=== PATIENT | female | born 1995 | race Caucasian/White ===

== ENCOUNTER 2018-12-26 15:27 | Emergency (ER) | payer MEDICAID, OTHER ==
[~2018-12-26] VITALS: Ht 170.2 cm; Wt 79.4 kg
[2018-12-26 15:30] VITALS: BP 122/82
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
== END 2018-12-26 16:16 | disposition home or self-care (01) ==
LOC: ED 16:07
DX: S76.012A Strain of muscle, fascia and tendon of left hip, initial encounter (principal); M25.562 Pain in left knee; F17.200 Nicotine dependence, unspecified, uncomplicated; X58.XXXA Exposure to other specified factors, initial encounter; Y93.89 Activity, other specified; Y92.89 Other specified places as the place of occurrence of the external cause; Y99.8 Other external cause status
CPT/HCPCS: 99283